=== PATIENT | female | born 1965 | race Caucasian/White ===

== ENCOUNTER → 2025-02-17 | Outpatient (CLI) | payer SELFPAY ==
--- NOTE | 2025-02-17 12:26 | CT_ITS ---
PROCEDURE: LIMITED CHEST CT CARDIAC ONLY 02/17/2025 REASON FOR EXAM: FAMILY HX OF EARLY CAD Increased cholesterol. TECHNIQUE: Procedure Code: [id number] Modality: CT Procedure: LIMITED CHEST CT CARDIAC ONLY CONTRAST: None One or more dose reduction techniques were used (e.g., Automated exposure control, adjustment of the mA and/or kV according to patient size, use of iterative reconstruction technique). RADIATION DOSE SUMMARY: CTDlvol: 12.19 mGy DLP: 219.42 mGycm COMPARISON: None FINDINGS: Mild atherosclerotic plaque formation of the aortic arch. Calcified right hilar lymph nodes and scattered right calcified granulomas. No significant coronary artery calcification is seen. CT/Limited Chest CT Cardiac Only IMPRESSION: No significant coronary artery calcification is seen. Scattered calcified granulomas in the right lung as well as calcified right hil ar lymph nodes. Reading Location: [id number]
--- NOTE | 2025-02-27 07:06 | CA.SCORE ---
Calcium Scoring Date of Study:: 02/17/25 Indications Indications: Family history of CAD Coronary Calcium Scoring: High-resolution Computed Tomographic imaging of the chest was performed on [02/17/2025], with particular attention paid to the coronary arteries. Images from the examination were analyzed for the presence and extent of coronary artery calcification , using coronary calcium quantification software. The patient tolerated the procedure well and there were no complications. The results of the coronary calcification analysis are provided below. Findings Coronary Artery Left Main (LM): 0 Left Anterior Descending (LAD): 0 Left Circumflex (LCX): 0 Right Coronary Artery (RCA): 0 Total Agatston Score: 0 Percentile Rankin Calcium Scoring Interpretation: Different methods to categorize the overall amount of coronary plaque. Overall amount CAC SIS Visual of coronary plaque P1 Mild -100 <2 1-2 vessels with mild amount of plaque P2 Moderate 101-300 3-4 1-2 vessels with moderate amount, 3 vessels with mild amount of plaque P3 Severe 301-999 5-7 3 vessels with moderate amount, 1 vessel with severe amount of plaque P4 Extensive >1000 >8 2-3 vessels with severe amount of plaque Conclusion: No atherosclerotic plaquing noted.
== END | disposition home or self-care (01) ==
LOC: CT 12:21
PROVIDERS: PCP Family Medicine; Referring Provider Registered Nurse; Visit Provider Registered Nurse
DX: E78.5 Hyperlipidemia, unspecified (principal); Z82.49 Family history of ischemic heart disease and other diseases of the circulatory system
CPT/HCPCS: 75571; 76380